=== PATIENT | female | born 1990 | race Hispanic/Latino ===

== ENCOUNTER 2019-05-20 08:48 | Day surgery (SDC) | payer OTHER ==
[2019-05-20] VITALS (18 sets, daily range): BP systolic 112–143; BP diastolic 51–85
[~2019-05-20] VITALS: Ht 157.5 cm; Wt 104.3 kg
[~2019-05-20 08:48] MED LIST: LEVO150T11 PO; SODIUM CHLORIDE 0.9% 1000ML 1,000 ML IV ONE
[2019-05-20 09:45] LABS: BASOPHILS % (AUTO) 0.6 % (0.0-5.0); EOSINOPHILS % (AUTO) 2.4 % (0.0-8.0); HEMATOCRIT 39.8 % (36-48); LYMPHOCYTES % (AUTO) 27.9 % (21.0-51.0); MEAN CORPUSCULAR HEMOGLOBIN 25.7 pg (27.0-33.0); MEAN CORPUSCULAR HGB CONC 32.8 g/dL (32.0-36.0); MEAN CORPUSCULAR VOLUME 78.5 fL (79-99); MONOCYTES % (AUTO) 8.8 % (3.0-13.0); NEUTROPHILS % (AUTO) 60.3 % (40.0-77.0); PLATELET COUNT (AUTO) 279 K/uL (130-400); RED BLOOD CELL COUNT(AUTO) 5.07 MIL/uL (4.00-5.50); RED CELL DISTRIBUTION WIDTH 15.8 % (11.0-15.5); WHITE BLOOD COUNT (AUTO) 8.4 K/uL (4.8-10.8)
[2019-05-20 09:57] LABS: CREATININE 0.8 mg/dL (0.5-1.5); POTASSIUM 4.4 mmol/L (3.5-5.1)
[2019-05-20] MEDS ORDERED: INDOMETHACIN 50 MG SUPP.RECT RC SCH (10:30)
[2019-05-20] MEDS ORDERED: PROPOFOL 10 MG/ML 20ML VIAL IV ONE ×3 (11:13→11:43)
[2019-05-20] MEDS ORDERED: SUCCINYLCHOLINE 200MG/10ML SYR ONE (11:14)
[2019-05-20] MEDS ORDERED: IOHEXOL-350 50ML VIAL IV ONE (11:18)
[2019-05-20] MEDS ORDERED: MEPERIDINE-PF 25 MG/ML SYG ONE (12:36)
== END 2019-05-20 13:50 | disposition home or self-care (01) ==
LOC: DAH 08:48
PROVIDERS: ATTEND Internal Medicine Gastroenterology
DX: K80.50 Calculus of bile duct without cholangitis or cholecystitis without obstruction (principal); E03.9 Hypothyroidism, unspecified; Z79.899 Other long term (current) drug therapy; Z83.3 Family history of diabetes mellitus
CPT/HCPCS: 36415; 43262; 43264; 43275; 74330; 80048; 85025; A4215; A4221; A4222; A4223; A4606; A4615; A4657 ×2; A4663; C1769; C1773; J0330; J2175; J2704 ×2; J7030; Q9967